=== PATIENT | female | born 1990 | race Caucasian/White ===

== ENCOUNTER 2023-09-13 13:59 | Inpatient (IN) ==
[2023-09-13] MEDS ORDERED: OXYTOCIN 30 UNITS/NSS 30 UNITS/500 ML BAG IV PRN ×2 (14:19→22:46)
[2023-09-13] MEDS ORDERED: LIDOCAINE 1% LOCAL 20 ML VIAL INFIL PRN (14:19)
[2023-09-13] MEDS ORDERED: LACTATED RINGER'S 1,000 ML IV PRN (14:19)
--- NOTE | 2023-09-13 14:21 | History & Physical Report ---
Date of Service September 13, 2023 Assessment & Plan (1) Carrier of group B Streptococcus: (2) Normal labor: Plan admit, treat gbs, epidural on demand. fetus category one. anticipate . History of Present Illness Chief Complaint: rom Primary Care Provider: Talha Vasques MD Patient is a g1po wtih iup at 38 4/7 weeks who was out cutting a ramonita tree and started leaking fluid about 1pm, soaked underwear and through jeans . Has not really felt contractions. +fm GDM diet controlled. Last us was 08/28 with ac 40%, efw 37%. and Delivery Plans [facility] Psychiatrist hospitalist GDM w/16wk glucola *Begin monthly Growth US's [place] [facility] [place] - done Tubular Structure in abdomen at 28 weeks [facility] consult [place] [facility] [place] their [place]-akh GBS Positive in Urine *Treat in labor Flu shot given 07/10/23 OB Labs: Blood Type B Positive 02/18/23 Antibody Screen NEGATIVE 02/18/23 Hemoglobin 12.0 g/dl (12.0-16.0) 07/04/23 Hematocrit 37.0 % (37.0-47.0) 07/04/23 Mean Corpuscular Volume 86.8 fL (80.0-100.0) 02/18/23 Platelet Count 228 K/uL (130-400) 02/18/23 Rubella IgG Antibody Immune (Immune) 02/18/23 Rapid Plasma Reagin Nonreactive (Nonreactive) 02/18/23 Hepatitis B Surface Antigen. NON-REACTIVE (NON-REACTIVE) 02/18/23 Hepatitis C Antibody Neg (Neg) 07/12/21 Hepatitis C Antibody (EIA) NON-REACTIVE (NON-REACTIVE) 02/18/23 HIV (1&2) Ag and Ab Confirmation NON-REACTIVE (NON-REACTIVE) 02/18/23 Glucose 1 Hour 50 gm Load 171 mg/dl (70-130) H 04/08/23 OB Optional Labs: Chlamydia trachomatis RNA Not Detected (NotDetected) 02/18/23 Neisseria gonorrhoeae RNA Not Detected (NotDetected) 02/18/23 Thyroid Stimulating Hormone (TSH) 1.409 uIu/ml (0.300-4.500) 02/18/23 Labs Reviewed: cfdna-low risk--mln carrier screening-negative--mln failed 2 hr gtt Allergies Allergy/AdvReac Type Severity Reaction Status Date / Time gluten Allergy Mild Verified 09/11/23 15:57 Sulfa (Sulfonamide Allergy Mild Verified 09/11/23 15:57 Antibiotics) ketorolac eye drops Allergy Uncoded 09/05/23 11:15 Home Medications Medication Instructions Recorded Confirmed Type ketoconazole 2 % shampoo 1 applic topical .COMPLEX #120 mL 06/18/22 09/11/23 Rx prenat.vits,griselda,qvg-[id number]-prkbr 1 tab PO DAILY 02/10/23 09/11/23 History diclofenac sodium 1 % topical gel 2 g topical QID #200 grams 05/06/23 09/11/23 Rx (Voltaren Arthritis Pain) ondansetron 4 mg disintegrating 4 mg PO Q8H PRN nausea and 06/04/23 09/11/23 Rx tablet vomiting #30 tabs clindamycin 1 %-benzoyl peroxide 5 1 applic topical DAILY #50 grams 06/25/23 09/11/23 Rx % topical gel breast pump #1 ea 07/10/23 09/11/23 Rx omeprazole 20 mg capsule,delayed 20 mg PO DAILY #30 caps 07/15/23 09/11/23 Rx release terconazole 0.8 % vaginal cream 1 appful vaginal DAILY #20 grams 07/31/23 09/11/23 Rx Patient History Medical History Inflammatory arthritis Surgical History S/P cataract extraction S/P tonsillectomy S/P wisdom tooth extraction Family History Other Dyslipidemia Denies family history of Ovarian cancer Prostate cancer Myocardial infarction Breast cancer Colorectal cancer Social History Smoking Status: Never smoker Second Hand Exposure: No; Do You Dip or Chew Tobacco: No; Hx Alcohol Use: Yes Hx Substance Use: No Preferred Language: Ghanaian Visual Impairment: No Limitations Hearing Ability: Normal marital status: marital status details: Andrew (33) [phone] Current Living Situation: Spouse Current Living Situation Comment: lives with spouse, no pets. current occupational status: employed current occupation: physician Dental Care, Regularly: Yes Physical Activity Frequency: 3-4 Times per Week Seatbelt Use: always OB History g0 current [employer] History noncontributory Physical Exam Constitutional: WD/WN, vitals as above Gastrointestinal (Abdomen): soft, gravid, nt Psychiatric: A+Ox3, euthymic affect Genitourinary: sse--difficult, fluidy and mucous, +f/n sve--5-6/100/-1 toco--q2-4min efm--150s with accels to the 180s , no decels Results & Data Vital Signs (Past 12 Hours) Vital Signs Temp Pulse Resp BP 09/13/23 14:05 117 H 121/81 09/13/23 14:03 20 09/13/23 14:03 37.0 C 20 Coding Level of Care Code None Diagnoses Carrier of group B Streptococcus Z22.330 Normal labor O80; Z37.9
[2023-09-13] MEDS ORDERED: PENICILLIN G POTASSIUM 6 MU in DEXTROSE 5% 250 ML IV ONE (14:45)
[2023-09-13 15:02] LABS: Hematocrit (blood only) 33.7 % (37.0-47.0); Hemoglobin 10.8 g/dl (12.0-16.0); Mean Corpuscular Volume 84.3 fL (80.0-100.0); Mean Platelet Volume 12.1 fL (9.4-12.4); Platelet Count 198 K/uL (130-400); RDW Coefficient of Variation 14.1 % (11.5-14.5); RDW Standard Deviation 43.2 fL (36.4-46.3); White Blood Count 12.09 K/ul (4.8-10.8)
--- NOTE | 2023-09-13 16:05 | Labor Progress Brief Note ---
Date of Service September 13, 2023 Subjective Still comfortable Assessment & Plan (1) Normal labor: Plan first dose of pcn on board. arom of forebag and mec noted. fetus category one. epidural on demand. Admission and Anticipated Discharge Date Admission Date: September 13, 2023 Physical Exam Physical Exam: cx--6+/100/-2 arom of forebag, thin mec noted efm--130s with mod variablity, aceeels to 170s, no decels Results & Data Vital Signs (Past 12 Hours) Vital Signs Temp Pulse Resp BP 09/13/23 15:21 94 H 115/74 09/13/23 15:07 90 117/74 09/13/23 14:52 108 H 124/77 09/13/23 14:36 104 H 127/77 09/13/23 14:31 37.0 C 18 137/85 09/13/23 14:21 107 H 137/85 09/13/23 14:05 117 H 121/81 09/13/23 14:03 20 09/13/23 14:03 37.0 C 20 Coding Level of Care Code None Diagnoses Normal labor O80; Z37.9
[2023-09-13] MEDS ORDERED: ePHEDrine sulfate 50 MG/ML AMP ONE (16:14)
[2023-09-13] MEDS ORDERED: fentANYL 2 MCG/ML BUPIVacaine 0.125%-NSS 100ML BAG ONE (16:14)
[2023-09-13] MEDS ORDERED: fentaNYL citrate PF 100 MCG/2 ML VIAL ONE (16:14)
[2023-09-13] MEDS ORDERED: SODIUM CHLORIDE 0.9% PF INJ 10 ML VIAL ONE (16:14)
[2023-09-13] MEDS ORDERED: BUPIVACAINE 0.25% PF 30 ML VIAL ONE (16:14)
[2023-09-13] MEDS ORDERED: LIDOCAINE 2%/EPINEPHRINE 1:200,000 20 ML PF ONE (16:14)
[2023-09-13] MEDS ORDERED: diphenhydrAMINE 50 MG/ML VIAL IV PRN (17:07)
[2023-09-13] MEDS ORDERED: BUPIVACAINE 0.25% PF 30 ML VIAL EPI PRN (17:07)
[2023-09-13] MEDS ORDERED: fentaNYL citrate PF 100 MCG/2 ML VIAL EPI STA (17:07)
[2023-09-13] MEDS ORDERED: fentaNYL citrate PF 100 MCG/2 ML VIAL EPI PRN (17:07)
[2023-09-13] MEDS ORDERED: SODIUM CHLORIDE 0.9% PF INJ 10 ML VIAL EPI STA (17:07)
[2023-09-13] MEDS ORDERED: LIDOCAINE 2%/EPINEPHRINE 1:200,000 20 ML PF EPI STA (17:07)
[2023-09-13] MEDS ORDERED: BUPIVACAINE 0.25% PF 30 ML VIAL EPI STA (17:07)
[2023-09-13] MEDS ORDERED: SODIUM CHLORIDE 0.9% PF INJ 10 ML VIAL EPI PRN (17:07)
[2023-09-13] MEDS ORDERED: ePHEDrine sulfate 50 MG/ML AMP IV PRN (17:07)
[2023-09-13] MEDS ORDERED: NALOXONE HCL 1 MG in SODIUM CHLORIDE 0.9% 1,000 ML IV PRN (17:07)
[2023-09-13] MEDS ORDERED: ROPIVACAINE 0.5% PF 5 MG/ML 20 ML VIAL EPI PRN (17:07)
[2023-09-13] MEDS ORDERED: fentANYL 2 MCG/ML BUPIVacaine 0.125%-NSS 100ML BAG EPI PRN (17:07)
[2023-09-13] MEDS ORDERED: LIDOCAINE 2% MPF LOCAL 5 ML VIAL EPI PRN (17:07)
[2023-09-13] MEDS ORDERED: NALOXONE HCL 0.4 MG/1 ML VIAL/CARP IV PRN (17:07)
[2023-09-13] MEDS ORDERED: NALBUPHINE HCL 5 MG in SYRINGE 0 ML IV PRN (17:07)
--- NOTE | 2023-09-13 17:07 | Anesthesiology Consultation ---
Date of Service September 13, 2023 Assessment & Plan Chart Review Chart Review: Acceptable Risk for Labor Epidural Consults Requested none History Height/Weight Height: 5 ft 5 in Weight: 84.368 kg Allergies Allergy/AdvReac Type Severity Reaction Status Date / Time gluten Allergy Mild Verified 09/11/23 15:57 Sulfa (Sulfonamide Allergy Mild Verified 09/11/23 15:57 Antibiotics) ketorolac eye drops Allergy Uncoded 09/05/23 11:15 Medications Home Medications Medication Instructions Recorded Confirmed Last Taken ketoconazole 2 % shampoo 1 applic topical .COMPLEX #120 mL 06/18/22 09/11/23 Unknown prenat.vits,griselda,uzi-fqoe-akopd 1 tab PO DAILY 02/10/23 09/11/23 Unknown diclofenac sodium 1 % topical gel 2 g topical QID #200 grams 05/06/23 09/11/23 Unknown (Voltaren Arthritis Pain) ondansetron 4 mg disintegrating 4 mg PO Q8H PRN nausea and 06/04/23 09/11/23 Unknown tablet vomiting #30 tabs clindamycin 1 %-benzoyl peroxide 5 1 applic topical DAILY #50 grams 06/25/23 09/11/23 Unknown % topical gel breast pump #1 ea 07/10/23 09/11/23 Unknown omeprazole 20 mg capsule,delayed 20 mg PO DAILY #30 caps 07/15/23 09/11/23 Unknown release terconazole 0.8 % vaginal cream 1 appful vaginal DAILY #20 grams 07/31/23 09/11/23 Unknown Active Medications Generic Name Dose Route Start Last Admin Trade Name Freq PRN Reason Stop Dose Admin Lactated Ringer's 1,000 mls @ 125 mls/hr 09/13/23 14:19 09/13/23 14:53 Lr IV 09/15/23 14:18 125 mls/hr .Q8H PRN Administration L&D Protocol Protocol Past Medical History Medical History (Updated 09/13/23 @ 15:41 by Gwendolyn Bass RN) GDM (gestational diabetes mellitus) Inflammatory arthritis Past Family History Family History Other Dyslipidemia Denies family history of Ovarian cancer Prostate cancer Myocardial infarction Breast cancer Colorectal cancer Past Surgical History Surgical History S/P wisdom tooth extraction S/P cataract extraction 2014 and 2019 bilateral S/P tonsillectomy Social History Smoking Status: Never smoker Do You Dip or Chew Tobacco: No Hx Alcohol Use: No Hx Substance Use: No Physical Exam Vital Signs Last Vital Signs Temp 36.9 C 09/13/23 16:01 Pulse 93 H 09/13/23 17:05 Resp 18 09/13/23 14:31 BP 115/73 09/13/23 17:02 Pulse Ox 99 09/13/23 17:05 Constitutional WD/WN, vitals as above Psychiatric A+Ox3, euthymic affect Testing Laboratory Results 09/13/23 14:41
[2023-09-13] MEDS ORDERED: PENICILLIN G POTASSIUM 3 MU in DEXTROSE 5% 100 ML IV PRN (17:19)
--- NOTE | 2023-09-13 18:22 | Labor Progress Brief Note ---
Date of Service September 13, 2023 Subjective comfortable with epidural Assessment & Plan (1) Normal labor: Plan continue current management. anticipate . fetus category one. Admission and Anticipated Discharge Date Admission Date: September 13, 2023 Physical Exam Physical Exam: cx--ant lip/0 toco--q2-4min efm--130s wtih mod variability, accels to 180s, no decels Results & Data Vital Signs (Past 12 Hours) Vital Signs Temp Pulse Resp BP Pulse Ox 09/13/23 18:15 121 H 100 09/13/23 18:12 111 H 130/85 09/13/23 18:10 99 H 99 09/13/23 18:07 92 H 119/69 09/13/23 18:05 87 99 09/13/23 18:03 96 H 116/71 09/13/23 18:00 36.7 C 94 H 16 99 09/13/23 17:57 90 115/71 09/13/23 17:55 99 H 99 09/13/23 17:53 96 H 119/77 09/13/23 17:50 83 16 99 09/13/23 17:45 90 99 09/13/23 17:41 92 H 117/70 09/13/23 17:40 105 H 16 100 09/13/23 17:39 102 H 105/71 09/13/23 17:37 100 H 16 116/72 09/13/23 17:35 96 H 125/77 99 09/13/23 17:33 104 H 16 118/83 09/13/23 17:31 107 H 119/80 09/13/23 17:30 16 09/13/23 17:30 108 H 16 99 09/13/23 17:25 87 100 09/13/23 17:20 99 H 99 09/13/23 17:16 112 H 126/80 09/13/23 17:15 107 H 99 09/13/23 17:10 100 H 100 09/13/23 17:05 93 H 99 09/13/23 17:02 97 H 115/73 09/13/23 17:00 102 H 99 09/13/23 16:51 98 H 98 09/13/23 16:47 96 H 123/84 09/13/23 16:46 99 H 98 09/13/23 16:41 103 H 98 09/13/23 16:36 99 H 99 09/13/23 16:31 100 H 128/84 98 09/13/23 16:26 101 H 98 09/13/23 16:21 108 H 98 09/13/23 16:16 94 H 99 09/13/23 16:01 36.9 C 09/13/23 15:21 94 H 115/74 09/13/23 15:07 90 117/74 09/13/23 14:52 108 H 124/77 09/13/23 14:36 104 H 127/77 09/13/23 14:31 37.0 C 18 137/85 09/13/23 14:21 107 H 137/85 09/13/23 14:05 117 H 121/81 09/13/23 14:03 20 09/13/23 14:03 37.0 C 20 Coding Level of Care Code None Diagnoses Normal labor O80; Z37.9
--- NOTE | 2023-09-13 19:39 | Labor Progress Brief Note ---
Date of Service September 13, 2023 Subjective feeling some pressure Assessment & Plan (1) Normal labor: Plan fetus category one. begin second stage. Admission and Anticipated Discharge Date Admission Date: September 13, 2023 Physical Exam Physical Exam: cx--c/c/+1 toco--difficult tracing qhp==732y with mod variability, accels to 180s, no decels. Results & Data Vital Signs (Past 12 Hours) Vital Signs Temp Pulse Resp BP Pulse Ox 09/13/23 19:35 110 H 99 09/13/23 19:30 105 H 100 09/13/23 19:25 99 H 100 09/13/23 19:24 111 H 130/77 09/13/23 19:20 98 H 99 09/13/23 19:15 93 H 99 09/13/23 19:10 104 H 99 09/13/23 19:08 91 H 119/84 09/13/23 19:05 104 H 100 09/13/23 19:00 18 09/13/23 19:00 37.1 C 18 09/13/23 19:00 16 09/13/23 19:00 108 H 16 98 09/13/23 18:55 100 H 99 09/13/23 18:53 84 105/63 09/13/23 18:50 101 H 100 09/13/23 18:45 94 H 100 09/13/23 18:40 101 H 99 09/13/23 18:39 93 H 103/61 09/13/23 18:35 90 99 09/13/23 18:32 99 H 100/56 L 09/13/23 18:30 97 H 16 99 09/13/23 18:28 93 H 108/56 L 09/13/23 18:25 94 H 99 09/13/23 18:20 97 H 99 09/13/23 18:15 121 H 100 09/13/23 18:12 111 H 130/85 09/13/23 18:10 99 H 99 09/13/23 18:07 92 H 119/69 09/13/23 18:05 87 99 09/13/23 18:03 96 H 116/71 09/13/23 18:00 36.7 C 94 H 16 99 09/13/23 17:57 90 115/71 09/13/23 17:55 99 H 99 09/13/23 17:53 96 H 119/77 09/13/23 17:50 83 16 99 09/13/23 17:45 90 99 09/13/23 17:41 92 H 117/70 09/13/23 17:40 105 H 16 100 09/13/23 17:39 102 H 105/71 09/13/23 17:37 100 H 16 116/72 09/13/23 17:35 96 H 125/77 99 09/13/23 17:33 104 H 16 118/83 09/13/23 17:31 107 H 119/80 09/13/23 17:30 16 09/13/23 17:30 108 H 16 99 09/13/23 17:25 87 100 09/13/23 17:20 99 H 99 09/13/23 17:16 112 H 126/80 09/13/23 17:15 107 H 99 09/13/23 17:10 100 H 100 09/13/23 17:05 93 H 99 09/13/23 17:02 97 H 115/73 09/13/23 17:00 102 H 99 09/13/23 16:51 98 H 98 09/13/23 16:47 96 H 123/84 09/13/23 16:46 99 H 98 09/13/23 16:41 103 H 98 09/13/23 16:36 99 H 99 09/13/23 16:31 100 H 128/84 98 09/13/23 16:26 101 H 98 09/13/23 16:21 108 H 98 09/13/23 16:16 94 H 99 09/13/23 16:01 36.9 C 09/13/23 15:21 94 H 115/74 09/13/23 15:07 90 117/74 09/13/23 14:52 108 H 124/77 09/13/23 14:36 104 H 127/77 09/13/23 14:31 37.0 C 18 137/85 09/13/23 14:21 107 H 137/85 09/13/23 14:05 117 H 121/81 09/13/23 14:03 20 09/13/23 14:03 37.0 C 20 Coding Level of Care Code None Diagnoses Normal labor O80; Z37.9
--- NOTE | 2023-09-13 21:52 | Labor Progress Brief Note ---
Date of Service September 13, 2023 Subjective Resumed pushing with excellent effort Assessment & Plan (1) Normal labor: Plan pushed for 1.5 hours, rested for 30 minutes and now resuming. caput visible with pushing. fetus reassuring. anticipate . Admission and Anticipated Discharge Date Admission Date: September 13, 2023 Physical Exam Physical Exam: cx--c/c/+2-3, caput visible toco--q2-4min efm--150s with mod variability, variables with pushing Results & Data Vital Signs (Past 12 Hours) Vital Signs Temp Pulse Resp BP Pulse Ox 09/13/23 21:48 119 H 89 L 09/13/23 21:46 99 09/13/23 21:46 110 H 09/13/23 21:46 108 H 109/73 09/13/23 21:41 117 H 99 09/13/23 21:40 122 H 89 L 09/13/23 21:36 149 H 99 09/13/23 21:31 108 H 100 09/13/23 21:30 37.2 C 09/13/23 21:26 97 H 99 09/13/23 21:21 107 H 98 09/13/23 21:16 102 H 97 09/13/23 21:11 103 H 98 09/13/23 21:06 108 H 99 09/13/23 21:01 105 H 97 09/13/23 21:00 18 09/13/23 21:00 18 09/13/23 20:56 127 H 97 09/13/23 20:51 130 H 98 09/13/23 20:46 112 H 97 09/13/23 20:44 121 H 86 L 09/13/23 20:41 137 H 84 L 09/13/23 20:39 127 H 92 09/13/23 20:36 125 H 98 09/13/23 20:31 141 H 97 09/13/23 20:30 20 09/13/23 20:30 20 09/13/23 20:26 134 H 98 09/13/23 20:21 152 H 98 09/13/23 20:16 142 H 98 09/13/23 20:11 138 H 98 09/13/23 20:08 122 H 106/60 09/13/23 20:05 118 H 97 09/13/23 20:00 20 09/13/23 20:00 20 09/13/23 20:00 120 H 100 09/13/23 19:59 117 H 91 09/13/23 19:55 106 H 98 09/13/23 19:50 116 H 99 09/13/23 19:45 93 H 100 09/13/23 19:40 115 H 100 09/13/23 19:35 110 H 99 09/13/23 19:30 105 H 100 09/13/23 19:25 99 H 100 09/13/23 19:24 111 H 130/77 09/13/23 19:20 98 H 99 09/13/23 19:15 93 H 99 09/13/23 19:10 104 H 99 09/13/23 19:08 91 H 119/84 09/13/23 19:05 104 H 100 09/13/23 19:00 18 09/13/23 19:00 37.1 C 18 09/13/23 19:00 16 09/13/23 19:00 108 H 16 98 09/13/23 18:55 100 H 99 09/13/23 18:53 84 105/63 09/13/23 18:50 101 H 100 09/13/23 18:45 94 H 100 09/13/23 18:40 101 H 99 09/13/23 18:39 93 H 103/61 09/13/23 18:35 90 99 09/13/23 18:32 99 H 100/56 L 09/13/23 18:30 97 H 16 99 18 18:28 93 H 108/56 L 09/13/23 18:25 94 H 99 09/13/23 18:20 97 H 99 09/13/23 18:15 121 H 100 09/13/23 18:12 111 H 130/85 09/13/23 18:10 99 H 99 18 18:07 92 H 119/69 09/13/23 18:05 87 99 09/13/23 18:03 96 H 116/71 09/13/23 18:00 36.7 C 94 H 16 99 09/13/23 17:57 90 115/71 1823 17:55 99 H 99 1823 17:53 96 H 119/77 1823 17:50 83 16 99 11/18/23 17:45 90 99 11/18/23 17:41 92 H 117/70 09/13/23 17:40 105 H 16 100 09/13/23 17:39 102 H 105/71 09/13/23 17:37 100 H 16 116/72 09/13/23 17:35 96 H 125/77 99 09/13/23 17:33 104 H 16 118/83 09/13/23 17:31 107 H 119/80 09/13/23 17:30 16 09/13/23 17:30 108 H 16 99 09/13/23 17:25 87 100 09/13/23 17:20 99 H 99 09/13/23 17:16 112 H 126/80 09/13/23 17:15 107 H 99 09/13/23 17:10 100 H 100 09/13/23 17:05 93 H 99 09/13/23 17:02 97 H 115/73 09/13/23 17:00 102 H 99 09/13/23 16:51 98 H 98 09/13/23 16:47 96 H 123/84 09/13/23 16:46 99 H 98 09/13/23 16:41 103 H 98 09/13/23 16:36 99 H 99 09/13/23 16:31 100 H 128/84 98 09/13/23 16:26 101 H 98 09/13/23 16:21 108 H 98 09/13/23 16:16 94 H 99 09/13/23 16:01 36.9 C 09/13/23 15:21 94 H 115/74 09/13/23 15:07 90 117/74 09/13/23 14:52 108 H 124/77 09/13/23 14:36 104 H 127/77 09/13/23 14:31 37.0 C 18 137/85 09/13/23 14:21 107 H 137/85 09/13/23 14:05 117 H 121/81 09/13/23 14:03 20 09/13/23 14:03 37.0 C 20 Coding Level of Care Code None Diagnoses Normal labor O80; Z37.9
[2023-09-13] MEDS ORDERED: bisacodyL 10 MG SUPP PR PRN (22:46)
[2023-09-13] MEDS ORDERED: BENZOCAINE 20% SPRY 85 APPLN/85 GM CAN EXT PRN (22:46)
[2023-09-13] MEDS ORDERED: oxyCODONE/ACETAMINOPHEN 5mg/325mg TAB PO PRN (22:46)
[2023-09-13] MEDS ORDERED: HYDROCORTISONE ACETATE 25 MG SUPP PR PRN (22:46)
[2023-09-13] MEDS ORDERED: ACETAMINOPHEN 325 MG TAB PO PRN (22:46)
[2023-09-13] MEDS ORDERED: DIPHTHERIA/TETANUS/PERTUSSIS Vaccine (Tdap, Age 7+yrs) 0.5mL SYR/VL IM ONE (22:46)
--- NOTE | 2023-09-13 22:52 | Delivery Summary ---
Vaginal Delivery Summary Date of Service September 13, 2023 Vaginal Delivery Summary and 2nd Degree LAC Pre-operative Diagnosis: at 38 weeks srom labor thin mec Post-operative Diagnosis: same Procedure: epidural manual extraction of the placenta second degree laceration and repair EBL: 400cc Anesthesia: epidural Procedure: The patient presented to labor and delivery with rom and labor. Admitted. Got GBS prophylaxis. Had forebag ruptured for thin med. Got epidural. Progressed to c/c/+1. Pushed for 1.5 hours, and then took a break. The patient pushed for another hour to deliver a viable infant in bisi position. The nose and mouth were bulb suctioned on the perineum and the rest of the was then delivered without difficulty. The baby was floppy. The nose and mouth were again bulb suctioned and the infant was placed in the maternal abdomen for drying and attention. Cord was clamped and cut and the was taken to the warmer. Cord blood and segment obtained. Placenta delivered via manual extraction after avulsion of the cord, intact with a three vessel cord. Cervix/sulci/rectum were intact. A second degree perineal laceration was repaired in the normal standard fashion. Hemostasis obtained with dilute p itocin and fundal massage. Apgars were 7/9. Mother and baby doing well at the end of the delivery. [facility] [place] Vaginal Delivery Charge Delivery Type Details: and 2nd Degree LAC
[2023-09-13] MEDS ORDERED: ceFAZolin 1000MG 1,000 MG/7.5 ML SYR IV ONE (23:00)
[2023-09-14] MEDS: IBUPROFEN 600 MG TAB PO PRN ×5 (01:03→20:22)
[2023-09-14 06:31] LABS: Hematocrit (blood only) 27.6 % (37.0-47.0)
[2023-09-14] MEDS: PRENATAL VITAMIN 1 TAB PO SCH (07:38)
[2023-09-14] MEDS: DOCUSATE SODIUM 100 MG CAP PO SCH ×2 (07:38→20:22)
--- NOTE | 2023-09-14 07:48 | Anesthesia Procedure Note ---
Date of Service September 14, 2023 Anesthesia Post Epidural Note Vital Signs Vital Signs: Temp Pulse Resp BP Pulse Ox O2 Del Method 36.7 C 94 H 18 115/71 99 Room Air 09/14/23 04:43 09/14/23 04:43 09/14/23 04:43 09/14/23 04:43 09/13/23 22:36 09/14/23 04:43 Pain Intensity Bilateral Episiotomy/Laceration: Pain Intensity: 2 Notes Mental Status: alert / awake / arousable and participated in evaluation Nausea / Vomiting: adequately controlled Pain: adequately controlled Airway Patency, RR, SpO2: stable & adequate BP & HR: stable & adequate Hydration State: stable & adequate Neuraxial Anesthesia: was administered and sensory block is resolving Anesthetic Complications: no major complications apparent and Pt Satisfied with anesthetic care Epidural: Removed without complications and With tip intact
--- NOTE | 2023-09-14 08:09 | Obstetrical Progress Note ---
Date of Service September 14, 2023 Assessment & Plan (1) Encounter for visit: Plan Doing well. Routine pp care. Subjective Ambulation: ambulating normally Voiding: no voiding problems Passing Gas:: Yes Diet Tolerance:: regular diet Lochia:: Small Feeding Type:: breast feeding Physical Exam Constitutional WD/WN, vitals as above Cardiovascular Extremities: + edema (tr); no calf tenderness Gastrointestinal (Abdomen) ff/nt at u Results & Data Vital Signs (Past 12 Hours) Vital Signs Temp Pulse Pulse Resp BP BP Pulse Ox 09/14/23 04:43 36.7 C 94 H 18 115/71 09/14/23 01:15 36.9 C 113 H 18 118/58 L 09/14/23 01:03 113 H 118/58 L 09/14/23 00:53 111 H 121/65 09/14/23 00:50 37.1 C 18 09/14/23 00:37 112 H 120/65 09/14/23 00:22 111 H 116/64 09/14/23 00:15 18 09/14/23 00:07 111 H 115/67 09/13/23 23:52 114 H 122/70 09/13/23 23:45 18 09/13/23 23:37 111 H 112/67 09/13/23 23:30 18 09/13/23 23:22 117 H 126/73 09/13/23 23:15 18 09/13/23 23:07 107 H 119/62 09/13/23 23:00 18 09/13/23 22:52 115 H 114/57 L 09/13/23 22:45 37.0 C 18 09/13/23 22:38 115 H 122/66 09/13/23 22:36 121 H 99 09/13/23 22:31 118 H 99 09/13/23 22:27 139 H 90 09/13/23 22:26 139 H 99 09/13/23 22:23 173 H 142/80 H 09/13/23 22:21 151 H 99 09/13/23 22:16 95 09/13/23 22:16 138 H 09/13/23 22:16 126 H 92 09/13/23 22:11 120 H 97 09/13/23 22:08 125 H 119/58 L 09/13/23 22:06 98 09/13/23 22:06 119 H 09/13/23 22:06 122 H 89 L 09/13/23 22:01 124 H 98 09/13/23 21:59 134 H 87 L 09/13/23 21:56 123 H 98 09/13/23 21:54 139 H 118/61 09/13/23 21:51 141 H 90 09/13/23 21:48 119 H 89 L 09/13/23 21:46 99 09/13/23 21:46 110 H 09/13/23 21:46 108 H 109/73 09/13/23 21:41 117 H 99 09/13/23 21:40 122 H 89 L 09/13/23 21:36 149 H 99 09/13/23 21:31 108 H 100 09/13/23 21:30 37.2 C 09/13/23 21:26 97 H 99 09/13/23 21:21 107 H 98 09/13/23 21:16 102 H 97 09/13/23 21:11 103 H 98 09/13/23 21:06 108 H 99 09/13/23 21:01 105 H 97 09/13/23 21:00 18 09/13/23 21:00 18 09/13/23 20:56 127 H 97 09/13/23 20:51 130 H 98 09/13/23 20:46 112 H 97 09/13/23 20:44 121 H 86 L 09/13/23 20:41 137 H 84 L 09/13/23 20:39 127 H 92 09/13/23 20:36 125 H 98 09/13/23 20:31 141 H 97 09/13/23 20:30 20 09/13/23 20:30 20 09/13/23 20:26 134 H 98 09/13/23 20:21 152 H 98 09/13/23 20:16 142 H 98 09/13/23 20:11 138 H 98 09/13/23 20:08 122 H 106/60 O2 Del Method 09/14/23 04:43 Room Air 09/14/23 01:15 Room Air 09/14/23 01:03 09/14/23 00:53 09/14/23 00:50 09/14/23 00:37 09/14/23 00:22 09/14/23 00:15 09/14/23 00:07 09/13/23 23:52 09/13/23 23:45 09/13/23 23:37 09/13/23 23:30 09/13/23 23:22 09/13/23 23:15 09/13/23 23:07 09/13/23 23:00 09/13/23 22:52 09/13/23 22:45 09/13/23 22:38 09/13/23 22:36 09/13/23 22:31 09/13/23 22:27 09/13/23 22:26 09/13/23 22:23 09/13/23 22:21 09/13/23 22:16 09/13/23 22:16 09/13/23 22:16 09/13/23 22:11 09/13/23 22:08 09/13/23 22:06 09/13/23 22:06 09/13/23 22:06 09/13/23 22:01 09/13/23 21:59 09/13/23 21:56 09/13/23 21:54 09/13/23 21:51 09/13/23 21:48 09/13/23 21:46 09/13/23 21:46 09/13/23 21:46 09/13/23 21:41 09/13/23 21:40 09/13/23 21:36 09/13/23 21:31 09/13/23 21:30 09/13/23 21:26 09/13/23 21:21 09/13/23 21:16 09/13/23 21:11 09/13/23 21:06 09/13/23 21:01 09/13/23 21:00 09/13/23 21:00 09/13/23 20:56 09/13/23 20:51 09/13/23 20:46 09/13/23 20:44 09/13/23 20:41 09/13/23 20:39 09/13/23 20:36 09/13/23 20:31 09/13/23 20:30 09/13/23 20:30 09/13/23 20:26 09/13/23 20:21 09/13/23 20:16 09/13/23 20:11 09/13/23 20:08
[2023-09-14] MEDS ORDERED: bisacodyL 5 MG TABEC PO SCH (20:00)
--- NOTE | 2023-09-15 06:48 | Obstetrical Progress Note ---
Date of Service September 15, 2023 Assessment & Plan (1) care following vaginal delivery: Plan: Doing well Pain control Encourage ambulation Plan for discharge today Admission and Anticipated Discharge Date Admission Date: September 13, 2023 Supervising Physician Co-Signing Physician Notes Resident Physician Supervision Note: I interviewed and examined the patient. Discussed with Dr. Varghese and agree with findings and plan as documented in the note. Any exceptions or clarifications ar e listed here: Doing well. Plan d/c. Instructions given. Documented By: Hanna Jett MD, FACOG Subjective 33 yo post day 2 s/p Ambulation: ambulating normally Voiding: no voiding problems Passing Gas:: Yes Diet Tolerance:: regular diet Lochia:: Small Feeding Type:: breast feeding Current Pain Level:minimal Resting comfortably this AM in NAD. Endorses b/l LE primarily foot swelling Denies PAN, CP, SOB, N/V/D. Review of Systems Review of Systems: reviewed, per HPI Physical Exam Physical Exam: General: patient resting comfortably, non-toxic in appearance, AA&O x 4, answers questions appropriately. Skin: warm, dry, intact HEENT: NC/AT, anicteric sclera, conjunctiva without injection, moist mucus membranes. Heart: +S1/S2, regular, no m/r/g Lungs: equal air entry bilaterally, no rales/rhonchi/wheezes Abd: +BS, soft, NT/ND, uterine fundus firm at umbilicus Ext: warm, b/l 1+ pitting edema limited to feet, Lala's neg. Neuro: speech intact, no facial droop, moving all extremities on command. Results & Data Vital Signs (Past 12 Hours) Vital Signs Temp Pulse Resp BP Pulse Ox O2 Del Method 09/14/23 23:03 36.4 C L 99 H 20 126/79 97 Room Air 09/14/23 20:25 36.5 C 102 H 18 112/63 Resident Activity Tracking Resident Involvement: Resident Care Provided Care Provided: Adult Hospital Medicine
[2023-09-15] MEDS: DOCUSATE SODIUM 100 MG CAP PO SCH (08:00)
[2023-09-15] MEDS: PRENATAL VITAMIN 1 TAB PO SCH (08:00)
== END 2023-09-15 11:20 | disposition home or self-care (01) | DRG 807 ==
LOC: OPB 13:59 → 4S1 14:01 → 4E2 09-14 01:43